=== PATIENT | male | born 1960 | race Hispanic/Latino ===

== ENCOUNTER 2018-09-02 15:46 | Emergency (ER) | payer OTHER ==
[2018-09-02 16:01] VITALS: RESP 18
--- NOTE | 2018-09-02 16:04 | ED PDOC ---
Arrival/HPI - General Historian: Patient - History of Present Illness Narrative History of Present Illness (Text): 09/02/18 16:01 58 year old male, no significant pmh, nkda, complaining of rt. foot pain s/p injured x 1 hour. 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 foot, been having pain, able to flex and extend with full flexion/extension on the rt. foot 5 digits, no numbness or tingling, no night sweat, no rash, no dizziness, no change in vision, no other medical or psychological complaints. Past Medical History - Provider Review Nursing Documentation Reviewed: Yes Family/Social History - Physician Review Nursing Documentation Reviewed: Yes Family/Social History: Unknown Family HX Allergies/Home Meds Allergies/Adverse Reactions: Allergies Penicillins Allergy (Verified 09/02/18 16:07) RASH Review of Systems - Review of Systems Constitutional: absent: Fatigue, Fevers Eyes: absent: Vision Changes ENT: absent: Hearing Changes Respiratory: absent: SOB, Cough Cardiovascular: absent: Chest Pain Gastrointestinal: absent: Abdominal Pain, Diarrhea, Nausea, Vomiting Musculoskeletal: Arthralgias. absent: Back Pain, Neck Pain, Joint Swelling, Myalgias Skin: absent: Rash, Pruritis Neurological: absent: Headache, Dizziness Hemo/Lymphatic: absent: Adenopathy Psychiatric: absent: Anxiety, Depression Physical Exam Vital Signs Reviewed: Yes Vital Signs Temp Pulse Resp BP Pulse Ox 09/02/18 16:01 97.9 F 98 H 18 133/83 97 Temperature: Afebrile Blood Pressure: Normal Pulse: Regular Respiratory Rate: Normal Appearance: Positive for: Well-Appearing, Non-Toxic, Comfortable Pain Distress: Moderate Mental Status: Positive for: Alert and Oriented X 3 - Systems Exam Head: Present: Atraumatic, Normocephalic Pupils: Present: PERRL Extroacular Muscles: Present: EOMI Conjunctiva: Present: Normal Mouth: Present: Moist Mucous Membranes Neck: Present: Normal Range of Motion Respiratory/Chest: Present: Clear to Auscultation, Good Air Exchange. No: Respiratory Distress, Accessory Muscle Use Cardiovascular: Present: Regular Rate and Rhythm, Normal S1, S2. No: Murmurs Abdomen: No: Tenderness, Distention, Peritoneal Signs, Rebound, Guarding Back: Present: Normal Inspection Upper Extremity: Present: Normal Inspection. No: Cyanosis, Edema Lower Extremity: Present: Normal Inspection, NORMAL PULSES, Normal ROM, Neurovascularly Intact, Capillary Refill < 2 s, Other (Rt. foot: visible mild ecchymosis on the rt. foot 1st and 2nd metatarsal region with +ttp on the 1st and 2nd digit toes, no cellulitis or ulcer, no deformity, FROM without limitation, sensation intact, motor 5/5, +DPPT pulses, capillary refill< 2 seconds, neurovascular intact. ). No: Edema, Deformity Neurological: Present: GCS=15, CN II-XII Intact, Speech Normal Skin: Present: Warm, Dry, Normal Color. No: Rashes Psychiatric: Present: Alert, Oriented x 3, Normal Insight, Normal Concentration Medical Decision Making ED Course and Treatment: 09/02/18 16:06 -Rt. foot xray -Motrin -observe and reassess 09/02/18 17:15 -Rt. foot xray show ER wet read: +fracture on the 1st digit distal phalanges. -Tejinder tapping applied by me with neurovascular intact, crutches -I discussed all radiology result with the patient. 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 - RAD Interpretation Radiology Orders: ADDENDUM: There is an error in the bones and impression sections of this report. There is an slightly comminuted intra-articular fracture fracture of the lateral aspect of the base of the distal phalanx of the right great toe. [ Addendum Report Added by Maycol Harvey MD at 09/03/2018 11:28:16 ] Date of service: The, 09/02/2018 PROCEDURE: Right Foot Radiographs. HISTORY: Foot injury with pain. COMPARISON: None. FINDINGS: BONES: No acute displaced fracture nor dislocation. The osseous structures appear intact. JOINTS: Mild hallux valgus deformity with slight overgrowth of the head of the 1st metatarsal and minimal DJD 1st MTP joint SOFT TISSUES: Normal. OTHER FINDINGS: None. IMPRESSION: No acute fractures. 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 Disposition/Present on Arrival - Present on Arrival Any Indicators Present on Arrival: No History of DVT/PE: No History of Uncontrolled Diabetes: No Urinary Catheter: No History of Decub. Ulcer: No - Disposition Have Diagnosis and Disposition been Completed?: Yes Diagnosis: Toe fracture, Contusion, foot Disposition: HOME/ ROUTINE Disposition Time: 17:21 Patient Plan: Discharge Condition: IMPROVED Additional Instructions: -Discharge home with motrin, tejinder tapping, crutches, non-weight bearing, ice compression, elevation, follow up with your own pmd and chief deputy sheriff within 2 days, return to the ER for any new or worsening signs or symptoms. Prescriptions: Ibuprofen [Motrin Tab] 600 mg PO QID PRN #30 tab PRN Reason: Other Referrals: Charlie Gibson DPM [Staff Provider] - Follow up with primary Forms: WORK NOTE
[2018-09-02 16:06] VITALS: BMI 27.1
[2018-09-02 17:39] VITALS: BP 137/95; PULSE 104; TEMP 98.1; O2SAT 96
--- NOTE | 2018-09-02 18:09 | RAD ---
Date of service: The, 09/02/2018 PROCEDURE: Right Foot Radiographs. HISTORY: Foot injury with pain. COMPARISON: None. FINDINGS: BONES: No acute displaced fracture nor dislocation. The osseous structures appear intact. JOINTS: Mild hallux valgus deformity with slight overgrowth of the head of the 1st metatarsal and minimal DJD 1st MTP joint SOFT TISSUES: Normal. OTHER FINDINGS: None. IMPRESSION: No acute fractures.
== END 2018-09-02 17:39 | disposition home or self-care (01) ==
LOC: ED 15:46
DX: S92.421A Displaced fracture of distal phalanx of right great toe, initial encounter for closed fracture (principal); S90.31XA Contusion of right foot, initial encounter; W01.0XXA Fall on same level from slipping, tripping and stumbling without subsequent striking against object, initial encounter